=== PATIENT | female | born 1970 | race Caucasian/White ===

== ENCOUNTER → 2016-10-22 | Outpatient (CLI) | payer OTHER ==
[~2016-10-22] MED LIST: AMOX500C5 PO
[2016-10-22 19:20] VITALS: BP 156/92
--- NOTE | 2016-10-22 19:20 | Urgent Care T Sheet Gen (E) ---
Intake General Temperature (Fahrenheit): 97.3 Pulse: 88 Blood Pressure Systolic: 156 Blood Pressure Diastolic: 92 Respirations: 24 SPO2: 93 Chief Complaint: sinus congestion Source: Patient History of Present Illness Initial Comments Pt notes for the last 2 weeks she has had sinus congestion. Notes that she has a slight cough. No fever. She has tried multiple OTC cough and cold meds with no relief. She did find a couple "left over amoxicillin in her closet" and she took 1 last night and 1 this morning. Respiratory Constitutional Symptoms: No syptoms reported EENTM: See HPI Nose Congestion Respiratory: See HPI Cough Cardiovascular: No symptoms reported Gastrointestinal/Abdominal: No symptoms reported Genitourinary: No symptoms reported Musculoskeletal: No symptoms reported Skin: No symptoms reported All Other Systems Reviewed Remaining Systems: All other systems reviewed with negative findings Past Bzsmxfd-Rgaunv-Sjexmb Hx Patient's Social History Alcohol Use: Denies Use Smoking Status: Never smoker Physical Exam Physical Exam General Appearance: WD/WN No apparent distress Eyes, Ears, Nose, Throat Ex: PERRL/EOMI Normal ENT inspection TMs normal Pharynx normal (postnasal drainage noted) Other (Pt has maxillary sinus tenderness; turbinates boggy) Neck Exam: Non tender Full range of motion Normal inspection Normal thyroid Respiratory Exam: Lungs clear Normal breath sounds Cardiovascular Exam: Regular rate, rhythm No edema Skin Exam: No rashes Departure Urgent Care Impression Chief Complaint: sinus congestion Impression: Primary Impression: Acute maxillary sinusitis Qualified Code: J01.00 - Acute maxillary sinusitis, unspecified Departure Disposition: HOME OR SELF-CARE Condition: Stable Referrals: MARÍA DURHAM MD (PCP) Additional Instructions: Take Amoxicillin 500mg 2 tab po bid x 10 days. Can use OTC Flonase nasal spray. Stop other OTC cough and cold medications as her BP is elevated today. Follow-up with Primary Care Provider in 5-7 days to recheck. Return to ER or UC if symptoms get worse or further concerns. Discharge instructions verbally given to Patient. Patient verbalizes understanding of discharge instruction. Scripts Amoxicillin (Amoxil)500 Mg Capsule1,000 Mg PO BID Infection #40 CAP Ref 0 Take 2 tab po bid x 10 days Prov:YOVANI DAY 10/22/16 End of report . YOVANI DAY Oct 22, 2016 19:20
== END ==
LOC: MHUC 18:55
PROVIDERS: ATTEND Physician Assistant
DX: J01.00 Acute maxillary sinusitis, unspecified (principal)
CPT/HCPCS: 99213